=== PATIENT | female | born 1995 | race Caucasian/White ===

== ENCOUNTER 2016-11-03 17:35 | Emergency (ER) | payer BC ==
[~2016-11-03] VITALS: Ht 170.2 cm; Wt 77.1 kg
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
[2016-11-03 18:35] LABS: BILIRUBIN,URINE NEGATIVE (NEGATIVE); KETONES,URINE NEGATIVE (NEGATIVE); LEUKOCYTE ESTERASE ,URINE 2+ (NEGATIVE); NITRITE,URINE NEGATIVE (NEGATIVE); PH,URINE 6.5 (5-9); PROTEIN,URINE 4+ (NEGATIVE); UROBILINOGEN,URINE NORMAL (NORMAL)
--- NOTE | 2016-11-03 18:56 | ED GU-Female ---
General Chief Complaint: -Female Stated Complaint: BLOOD IN URINE Nursing Triage Note: PT HAS A HISTORY OF UTI'S. NOTICED A SMALL AMOUNT OF BLOOD IN HER URINE THIS MORNING. WENT TO URGENT CARE AROUND 1600 TODAY WHERE SHE GAVE A URINE SAMPLE. URGENT CARE TOLD HER THERE WAS SO MUCH BLOOD AND CLOTS IN HER URINE THEY WERE UNABLE TO DIAGNOSE HER. PT C/O BURNING WITH URINATION. Nursing Sepsis Screen: No Definite Risk Source: patient Exam Limitations: no limitations History of Present Illness Time seen by provider: 18:55 Initial Comments 21-year-old female patient presents to the emergency department complains of a small amount of blood in her urine this a.m. States she was seen at urgent care at 1600 today. States she was told there was too much blood in her urine to give an accurate diagnosis and was sent to the emergency department. Now complains of dysuria. Patient does take ASA daily for a h/o stroke. Timing/Duration: this morning Severity/Quality: burning Location: urethral Radiation: none Activities at Onset: other (urination) Prior Genitourinary Problems: similar symptoms Modifying Factors: Worsens With Urinating Allergies and Home Medications Allergies Coded Allergies: No Known Drug Allergies (Unverified , 06/18/14) Home Medications Cephalexin 500 Mg Capsule #9 500 MG PO TID Prescribed by: AXEL PARIKH on 11/03/162056 Phenazopyridine HCl 200 Mg Tablet #30 1 TAB PO TID PRN PRN PAIN Prescribed by: AXEL PARIKH on 11/03/162056 Constitutional: No chills, No fever, No malaise Respiratory: no symptoms reported Cardiovascular: no symptoms reported Gastrointestinal: no symptoms reported Genitourinary: see HPI burning dysuria frequencydenies flank pain, hematuria Musculoskeletal: no symptoms reported Skin: no symptoms reported Psychiatric/Neurological: No Symptoms Reported All Other Systemes Reviewed Negative Unless Noted: Yes (Negative excepted noted.) Past Weqlhav-Gufeps-Uckbdo Hx Patient Social History Alcohol Use: Occasionally Uses Recreational Drug Use: No Smoking Status: Never a Smoker Recent Foreign Travel: No Contact w/Someone Who Travel: No Recent Infectious Disease Expo: No Recent Hopitalizations: No Surgeries HX Surgeries: Yes Surgeries: Orthopedic Respiratory Hx Respiratory Disorders: No Cardiovascular Hx Cardiac Disorders: No Neurological Hx Neurological Disorders: Yes Neurological Disorders: Stroke Genitourinary Hx Genitourinary Disorders: No Gastrointestinal Hx Gastrointestinal Disorders: No Musculoskeletal Hx Musculoskeletal Disorders: No Endocrine Hx Endocrine Disorders: No Reviewed Nursing Assessment Reviewed/Agree w Nursing PMH: Yes Family Medical History Significant Family History: No Pertinent Family Hx Physical Exam Vital Signs Capillary Refill : Less Than 3 Seconds General Appearance: WD/WN no apparent distress Cardiovascular: regular rate, rhythm no murmur Respiratory: lungs clear normal breath sounds no respiratory distress Gastrointestinal: normal bowel sounds non tender soft no organomegalyNo distended Back: normal inspection no CVA tenderness Extremities: normal inspection normal capillary refill Neurologic/Psychiatric: alert normal mood/affect oriented x 3 Skin: normal color warm/dry Progress/Results/Core Measures Results/Orders Lab Results My Orders Vital Signs/I&O Blood Pressure Mean: 93 Diagnostic Imaging Diagonstic Imaging: Ultrasound Plain Films/CT/US/NM/MRI: pelvis Comments FINDINGS: Both kidneys are normal in size and echogenicity. The right kidney measures 9.2 cm in length and the left is 10.3 cm. The cortical thickness and the cortical medullary differentiation is well maintained. There is no evidence of calculi, focal mass or hydronephrosis. Limited views of the pelvis demonstrate moderately distended urinary bladder. Multiple filling defects are noted within the gravity dependent portion of the urinary bladder. There is no ascites. IMPRESSION: 1. Unremarkable sonographic appearance to the bilateral kidneys. 2. Intraluminal filling defects within the gravity dependent portion of the urinary bladder. Given history of hematuria, findings could be on the basis of blood clot. Soft tissue filling defects, however, cannot be entirely excluded. Dictated by: Dictated on workstation # [id number] Reviewed: Reviewed by Me (radiology report reviewed) Departure Communication Progress Notes Laboratory and diagnostic findings discussed with the patient and her mother who is present in the room. Patient does take aspirin daily for history of a stroke. I have instructed patient to hold the aspirin and follow-up with Dr. Bill Sunday or Sunday. She is to call Sunday morning for appointment time. All return precautions were discussed with the patient as described in the discharge instructions of this report. Patient voices understanding and agrees with the treatment plan. Impression Impression: Primary Impression: Hematuria Disposition: HOME, SELF-CARE Condition: Improved Departure-Patient Inst. Decision time for Depature: 20:55 Referrals: JV LANDA DO (PCP/Family) Primary Care Physician SHAKIRA BILL MD Patient Instructions: Blood in the Urine (Hematuria), Adult (DC) Add. Discharge Instructions: All discharge instructions reviewed with patient and/or family. Voiced understanding. Hold the aspirin. Drink plenty of fluids. Follow-up with Dr. Bill as an outpatient Sunday or Sunday, call for appointment time Sunday. Return immediately to the emergency department if worsened blood in the urine, inability to urinate, fever, abdominal swelling, vomiting, or any other concerns. Scripts Cephalexin 500 Mg [id number] Mg PO TID #9 CAP Ref 0 Prov:AXEL PARIKH 11/03/16 Phenazopyridine HCl (Pyridium)200 Mg Tablet1 Tab PO TID PRN PAIN #30 0 Prov:AXEL PARIKH 11/03/16 Work/School Note: Work Release Form Date Seen in the Emergency Department: Nov 03, 2016 Return to Work: Nov 06, 2016 AXEL PARIKH Nov 03, 2016 18:56 Glucose Level 84 70-105 MG/DL Hematocrit 42 35-52 % Hemoglobin 14.1 11.5-16.0 G/DL INR Comment 1.1 0.8-1.4 Lymphocytes # (Auto) 2.2 1.0-4.0 X 10^3 Lymphocytes % (Manual) 16 % Lymphocytes (%) (Auto) 15 12-44 % Mean Corpuscular Hemoglobin 30 25-34 PG Mean Corpuscular Hemoglobin Concent 34 32-36 G/DL Mean Corpuscular Volume 87 80-99 FL Mean Platelet Volume 9.3 7.4-10.4 FL Monocytes # (Auto) 1.2 H 0.0-1.0 X 10^3 Monocytes % (Manual) 6 % Monocytes (%) (Auto) 8 0-12 % Neutrophils # (Auto) 11.0 H 1.8-7.8 X 10^3 Neutrophils % (Manual) 71 % Neutrophils (%) (Auto) 75 42-75 % Platelet Count 320 130-400 10^3/uL Potassium Level 4.1 3.6-5.0 MMOL/L Prothrombin Time 14.0 12.2-14.7 SEC Red Blood Count 4.77 4.35-5.85 10^6/uL Red Cell Distribution Width 12.9 10.0-14.5 % Sodium Level 139 135-145 MMOL/L Total Bilirubin 1.7 H 0.1-1.0 MG/DL Total Protein 7.0 6.4-8.2 G/DL White Blood Count 14.6 H 4.3-11.0 10^3/uL My Orders Orders-AXEL PARIKH Ua Culture If Indicated (11/03/16 18:08) Hcg,Qualitative Urine (11/03/16 19:07) Us Renal Bilateral [id number] (11/03/16 19:16) Phenazopyridine Tablet (Pyridium Tablet) (11/03/16 19:16) Cbc With Automated Diff (11/03/16 19:16) Comprehensive Metabolic Panel (11/03/16 19:16) Protime With Inr (11/03/16 19:16) Partial Thromboplastin Time (11/03/16 19:16) Manual Differential (11/03/16 19:30) Vital Signs/I&O Vital Sign - Last 12Hours 11/03/16 18:05 Temp 99.3 Pulse 80 Resp 16 B/P 126/77 Pulse Ox 99 O2 Delivery Room Air Blood Pressure Mean: 93 Departure Impression Impression: Primary Impression: Hematuria Disposition: HOME, SELF-CARE Condition: Improved Departure-Patient Inst. Decision time for Depature: 20:55 Referrals: JV LANDA DO (PCP/Family) Primary Care Physician SHAKIRA BILL MD Patient Instructions: Blood in the Urine (Hematuria), Adult (DC) Add. Discharge Instructions: All discharge instructions reviewed with patient and/or family. Voiced understanding. Hold the aspirin. Drink plenty of fluids. Follow-up with Dr. Bill as an outpatient Sunday or Sunday, call for appointment time Sunday. Return immediately to the emergency department if worsened blood in the urine, inability to urinate, fever, abdominal swelling, vomiting, or any other concerns. Scripts Cephalexin 500 Mg [id number] Mg PO TID #9 CAP Ref 0 Prov:AXEL PARIKH 11/03/16 Phenazopyridine HCl (Pyridium)200 Mg Tablet1 Tab PO TID PRN PAIN #30 0 Prov:AXEL PARIKH 11/03/16 Work/School Note: Work Release Form Date Seen in the Emergency Department: Nov 03, 2016 Return to Work: Nov 06, 2016 AXEL PARIKH Nov 03, 2016 18:56
[2016-11-03] MEDS ORDERED: PHENAZOPYRIDINE 100 MG (PYRIDIUM) TABLET PO STA (19:16)
[2016-11-03 19:44] LABS: BASOPHILS % (AUTO) 0 % (0-10); EOSINOPHILS # (AUTO) 0.2 10^3/uL (0.0-0.3); EOSINOPHILS % (AUTO) 1 % (0-10); LYMPHOCYTES # (AUTO) 2.2 X 10^3 (1.0-4.0); LYMPHOCYTES % (AUTO) 15 % (12-44); MEAN CORPUSCULAR HEMOGLOBIN 30 PG (25-34); MEAN CORPUSCULAR HGB CONC 34 G/DL (32-36); MEAN CORPUSCULAR VOLUME 87 FL (80-99); MEAN PLATELET VOLUME 9.3 FL (7.4-10.4); MONOCYTES # (AUTO) 1.2 X 10^3 (0.0-1.0); MONOCYTES % (AUTO) 8 % (0-12); NEUTROPHILS % (AUTO) 75 % (42-75); PLATELET COUNT 320 10^3/uL (130-400); RED BLOOD COUNT 4.77 10^6/uL (4.35-5.85); RED CELL DISTRIBUTION WIDTH 12.9 % (10.0-14.5); WHITE BLOOD COUNT 14.6 10^3/uL (4.3-11.0)
[2016-11-03 19:53] LABS: INR 1.1 (0.8-1.4)
[2016-11-03 20:03] LABS: ALANINE AMINOTRANSFERASE 21 U/L (0-55); ALBUMIN 4.1 G/DL (3.2-4.5); ANION GAP 11 MMOL/L (5-14); ASPARTATE AMINO TRANSFERASE 17 U/L (5-34); BILIRUBIN,TOTAL 1.7 MG/DL (0.1-1.0); BLOOD UREA NITROGEN 12 MG/DL (7-18); BUN/CREATININE RATIO 15; CALCIUM 9.1 MG/DL (8.5-10.1); CARBON DIOXIDE 21 MMOL/L (21-32); CHLORIDE 107 MMOL/L (98-107); GFR ESTIMATED > 60; GLUCOSE 84 MG/DL (70-105); POTASSIUM 4.1 MMOL/L (3.6-5.0); SODIUM 139 MMOL/L (135-145)
[2016-11-03 20:20] LABS: BAND NEUTROPHILS 6 %; BASOPHILS % (MANUAL) 0 %; EOSINOPHILS % (MANUAL) 1 %; LYMPHOCYTES % (MANUAL) 16 %; NEUTROPHILS % (MANUAL) 71 %
--- NOTE | 2016-11-03 20:36 | Diagnostic Imaging Report ---
INDICATION: Hematuria COMPARISON: None. FINDINGS: Both kidneys are normal in size and echogenicity. The right kidney measures 9.2 cm in length and the left is 10.3 cm. The cortical thickness and the cortical medullary differentiation is well maintained. There is no evidence of calculi, focal mass or hydronephrosis. Limited views of the pelvis demonstrate moderately distended urinary bladder. Multiple filling defects are noted within the gravity dependent portion of the urinary bladder. There is no ascites. IMPRESSION: 1. Unremarkable sonographic appearance to the bilateral kidneys. 2. Intraluminal filling defects within the gravity dependent portion of the urinary bladder. Given history of hematuria, findings could be on the basis of blood clot. Soft tissue filling defects, however, cannot be entirely excluded. Dictated by: Dictated on workstation # [id number]
[2016-11-03] MEDS ORDERED: PHEN-640 PO (20:57)
[2016-11-03] MEDS ORDERED: CEPH500C PO (20:57)
[2016-11-03 21:02] VITALS: BP 115/68
== END 2016-11-03 21:02 | disposition home or self-care (01) ==
LOC: EDUNIT# 17:35 → ER 17:37
DX: R31.9 Hematuria, unspecified (principal)
CPT/HCPCS: 36415; 76770; 80053; 81000; 84703; 85007; 85027; 85610; 85730; 99283